=== PATIENT | female | born 1970 | race African-American/Black ===

== ENCOUNTER 2021-01-30 06:33 | Emergency (ER) | payer MEDICAID ==
[~2021-01-30] VITALS: Ht 152.4 cm; Wt 90.9 kg
[2021-01-30 06:48] VITALS: TEMP 97.7
[2021-01-30 07:54] LABS: BASO # 0.1 (0.0-0.2); BASO % 0.9 % (0.0-2.0); EOS # 0.3 (0.0-0.7); EOS % 5.4 % (0-4.0); GRAN # 2.4 (1.4-6.5); GRAN % 42.7 % (42.2-75.2); HEMOGLOBIN 10.8 g/dl (12.5-16.0); LYMPH # 2.3 (1.2-3.4); LYMPH % 40.6 % (20.0-51.0); MEAN CELL VOLUME 85 fl (80.0-100.0); MEAN CORPUSCULAR HEMOGLOBIN 27 pg (27.0-31.0); MEAN CORPUSCULAR HGB CONC 31 g/dl (33.0-37.0); MEAN PLATELET VOLUME 10.2 fl (7.4-10.4); MONO # 0.6 (0.1-0.6); MONO % 9.9 % (1.7-9.3); PLATELET COUNT 259 K/mm3 (130-400); RED BLOOD COUNT 4.07 M/mm3 (4.10-5.30); REDCELL DISTRIBUTION WIDTH-CV 15.2 % (11.5-14.5)
[2021-01-30 07:56] LABS: HEMATOCRIT 34.6 % (37.0-47.0)
[2021-01-30 09:04] LABS: ALANINE AMINOTRANSFERASE 7 U/L (0-55); ALBUMIN 3.7 gm/dL (3.5-5.0); ALKALINE PHOSPHATASE 70 U/L (0-750); ANION GAP 10 mmol/L (7-16); AST,SGOT 17 U/L (5-34); BILIRUBIN,TOTAL 0.1 mg/dL (0.2-1.2); BLOOD UREA NITROGEN 16 mg/dL (10-20); CALCIUM 8.8 mg/dL (8.4-10.2); CARBON DIOXIDE 22 mmol/L (22-29); CHLORIDE 109 mmol/L (98-107); CREATININE, serum 1.49 mg/dL (0.57-1.11); GLUCOSE 103 mg/dL (70-99); SODIUM 141 mmol/L (136-145); TOTAL PROTEIN 7.1 gm/dL (6.2-8.1)
[2021-01-30 09:16] LABS: TROPONIN-I < 0.010 ng/mL (0.00-0.033)
[2021-01-30] MEDS ORDERED: LASIX 20MG TABL20 MG PO (09:50)
[2021-01-30 10:00] VITALS: BP 112/62; PULSE 87
== END 2021-01-30 10:03 | disposition home or self-care (01) ==
LOC: COL.ER 06:33
PROVIDERS: Personal Emergency Response Attendant
DX: D64.9 Anemia, unspecified (principal); R22.43 Localized swelling, mass and lump, lower limb, bilateral; N28.9 Disorder of kidney and ureter, unspecified; I10 Essential (primary) hypertension; E11.9 Type 2 diabetes mellitus without complications
CPT/HCPCS: J1940